=== PATIENT | male | born 1950 | race Hispanic/Latino ===

== ENCOUNTER 2021-03-17 05:36 | Day surgery (SDC) | payer OTHER, MEDICARE ==
[~2021-03-17] VITALS: Ht 170.2 cm; Wt 93.4 kg
[~2021-03-17 05:36] MED LIST: AMLO-257 PO; ENOX120D SQ; EZET10TA13 PO; INSU100V12 SQ; LISI20TA24 PO; METF-910 PO; MV-M1TAB20 PO; SIMV-46 PO; TAMS-1 PO; WARF-57 PO
[2021-03-17] MEDS ORDERED: SODIUM CHLORIDE 0.9% 1000ML 1,000 ML IV ONE (06:00)
[2021-03-17 06:57] LABS: INR 1.28 (0.85-1.15); PROTHROMBIN TIME 13.6 SEC (9.6-11.6)
[2021-03-17 07:02] VITALS: BP 148/82
[2021-03-17] MEDS ORDERED: CARV12.511 PO (07:29)
[2021-03-17] MEDS ORDERED: PROPOFOL 10 MG/ML 20ML VIAL IV ONE (08:20)
[2021-03-17 08:40] VITALS: BP 112/57
[2021-03-17 08:45] VITALS: BP 113/59
[2021-03-17 08:50] VITALS: BP 114/73
[2021-03-17 08:55] VITALS: BP 121/69
[2021-03-17 09:00] VITALS: BP 118/74
== END 2021-03-17 09:20 ==
LOC: ENDO 05:36 → DAH 05:36 → ENDO 09:20 → EDSTATUS 14:06
PROVIDERS: ATTEND Internal Medicine Gastroenterology
DX: R19.5 Other fecal abnormalities (principal); D12.2 Benign neoplasm of ascending colon; K64.0 First degree hemorrhoids; Z86.010 Personal history of colon polyps; I10 Essential (primary) hypertension; E78.5 Hyperlipidemia, unspecified; I25.10 Atherosclerotic heart disease of native coronary artery without angina pectoris; E11.9 Type 2 diabetes mellitus without complications; Z95.5 Presence of coronary angioplasty implant and graft; Z20.822 Contact with and (suspected) exposure to COVID-19; Z79.01 Long term (current) use of anticoagulants; Z79.84 Long term (current) use of oral hypoglycemic drugs; Z79.899 Other long term (current) drug therapy
CPT/HCPCS: 36415; 45385; 82948 ×2; 85610; A4215 ×2; A4221; A4222; A4223; A4606; A4620; A4649; A4657; A4663; C9803; J2704; J7030; U0003

== ENCOUNTER 2021-03-24 05:53 | Day surgery (SDC) | payer OTHER, MEDICARE ==
[~2021-03-24] VITALS: Ht 170.2 cm; Wt 92.5 kg
[~2021-03-24 05:53] MED LIST changes: +CARV12.511 PO
[2021-03-24] MEDS ORDERED: SODIUM CHLORIDE 0.9% 1000ML 1,000 ML IV ONE ×2 (06:26→08:10)
[2021-03-24 07:31] LABS: INR 2.22 (0.85-1.15); PROTHROMBIN TIME 22.5 SEC (9.6-11.6)
[2021-03-24 07:55] VITALS: BP 123/73
[2021-03-24] MEDS ORDERED: SIMV-43 PO (08:19)
[2021-03-24] MEDS ORDERED: lovenox (08:23)
[2021-03-24] MEDS ORDERED: TADA5TAB13 PO (08:24)
[2021-03-24] MEDS ORDERED: PROPOFOL 10 MG/ML 20ML VIAL IV ONE (08:29)
[2021-03-24] MEDS ORDERED: LIDOCAINE HCL 1% 20 ML VIAL ONE (08:29)
[2021-03-24] MEDS ORDERED: EPINEPHRINE 1 MG/ML AMPULE ONE (08:37)
[2021-03-24 08:50] VITALS: BP 93/48
[2021-03-24 08:55] VITALS: BP 127/63
[2021-03-24 09:00] VITALS: BP 158/76
[2021-03-24 09:15] VITALS: BP 159/70
== END 2021-03-24 09:20 | disposition home or self-care (01) ==
LOC: ENDO 05:53 → DAH 05:53 → ENDO 09:20
PROVIDERS: ATTEND Internal Medicine Gastroenterology
DX: K92.1 Melena (principal); Z20.822 Contact with and (suspected) exposure to COVID-19; K63.3 Ulcer of intestine; I10 Essential (primary) hypertension; E11.9 Type 2 diabetes mellitus without complications; E78.5 Hyperlipidemia, unspecified; I25.10 Atherosclerotic heart disease of native coronary artery without angina pectoris; Z79.84 Long term (current) use of oral hypoglycemic drugs; Z79.01 Long term (current) use of anticoagulants; Z86.010 Personal history of colon polyps; Z98.49 Cataract extraction status, unspecified eye; Z72.89 Other problems related to lifestyle; Z98.890 Other specified postprocedural states; Z95.5 Presence of coronary angioplasty implant and graft
CPT/HCPCS: 36415; 45382; 82948; 85610; 87426; A4215; A4216; A4221; A4222; A4223; A4606; A4620; A4649; A4663; J0171; J2704; J7030 ×2

== ENCOUNTER 2021-09-15 07:28 | Day surgery (SDC) | payer OTHER, MEDICARE ==
[~2021-09-15] VITALS: Ht 170.2 cm; Wt 93.0 kg
[~2021-09-15 07:28] MED LIST changes: +0.9%NACL 1000ML 1,000 ML IV ONE; -ENOX120D SQ; +SIMV-43 PO; -SIMV-46 PO; +TADA5TAB13 PO; +lovenox
[2021-09-15 07:43] VITALS: BP 150/83
[2021-09-15] MEDS ORDERED: WARF-57 PO (08:21)
[2021-09-15] MEDS ORDERED: PROPOFOL 10 MG/ML 20ML VIAL IV ONE (08:48)
[2021-09-15 09:00] VITALS: BP 110/75
[2021-09-15 09:05] VITALS: BP 126/65
[2021-09-15 09:13] VITALS: BP 124/74
== END 2021-09-15 09:35 | disposition home or self-care (01) ==
LOC: DAH 07:28 → ENDO 07:28
PROVIDERS: ATTEND Internal Medicine Gastroenterology
DX: D50.9 Iron deficiency anemia, unspecified (principal); Z20.822 Contact with and (suspected) exposure to COVID-19; K29.70 Gastritis, unspecified, without bleeding; K29.80 Duodenitis without bleeding; I10 Essential (primary) hypertension; I25.10 Atherosclerotic heart disease of native coronary artery without angina pectoris; G47.00 Insomnia, unspecified; E11.9 Type 2 diabetes mellitus without complications; E78.5 Hyperlipidemia, unspecified; Z86.010 Personal history of colon polyps; Z79.84 Long term (current) use of oral hypoglycemic drugs; Z98.890 Other specified postprocedural states; Z79.899 Other long term (current) drug therapy
CPT/HCPCS: 43239; 82948; 87635; 88305; 88342; A4215 ×2; A4221; A4222; A4223; A4606; A4620; A4657; A4663; C9803; J2704; J7030